=== PATIENT | female | born 1955 | race Caucasian/White ===

== ENCOUNTER → 2016-11-22 | Outpatient (CLI) | payer MEDICARE ==
[~2016-11-22] MED LIST: CALCIUM600 MG PO; FISH OIL 1,2001 EACH PO; HYDROXYZINE HCL25 MG PO; MIRALAX17 GM PO; NAPROXEN250 MG PO; NORCO 7.5-3251 EACH PO; VIT C PO
[2016-11-22 09:47] LABS: HEMOGLOBIN 14.3 gm/dl (12.3-15.3); RED BLOOD COUNT 4.51 M/UL (4.00-5.10); WHITE BLOOD COUNT 5.8 K/UL (4.5-11.0)
== END ==
LOC: OPSV2 08:44
PROVIDERS: Obstetrics & Gynecology
DX: Z01.812 Encounter for preprocedural laboratory examination (principal); Z01.810 Encounter for preprocedural cardiovascular examination; N81.6 Rectocele
CPT/HCPCS: 81001; 85025; 93005

== ENCOUNTER 2016-12-01 10:10 | Day surgery (SDC) | payer MEDICARE ==
[~2016-12-01] VITALS: Ht 160 cm; Wt 70.3 kg
[2016-12-01] MEDS ORDERED: VIT C PO (10:52)
[2016-12-01] MEDS ORDERED: FISH OIL 1,2001 EACH PO (10:53)
[2016-12-01] MEDS ORDERED: CALCIUM600 MG PO (10:53)
[2016-12-01] MEDS ORDERED: HYDROXYZINE HCL25 MG PO (10:54)
[2016-12-02 05:41] LABS: HEMOGLOBIN 11.8 gm/dl (12.3-15.3)
[2016-12-02] MEDS ORDERED: MIRALAX17 GM PO (11:44)
[2016-12-02] MEDS ORDERED: NORCO 7.5-3251 EACH PO (11:45)
[2016-12-02] MEDS ORDERED: NAPROXEN250 MG PO (11:45)
== END 2016-12-02 13:29 | disposition home or self-care (01) ==
LOC: OR 10:10 → M/S 15:54 → OR 12-02 13:29
PROVIDERS: Obstetrics & Gynecology
PROC: 0JQC0ZZ Repair Pelvic Region Subcutaneous Tissue and Fascia, Open Approach (ICD-10-PCS; 2016-12-01)
PROC: 0USG0ZZ Reposition Vagina, Open Approach (ICD-10-PCS; principal; 2016-12-01 12:45)
DX: N81.6 Rectocele (principal); N81.83 Incompetence or weakening of rectovaginal tissue; Z86.19 Personal history of other infectious and parasitic diseases; Z79.82 Long term (current) use of aspirin; Z79.899 Other long term (current) drug therapy; Z90.710 Acquired absence of both cervix and uterus; Z87.440 Personal history of urinary (tract) infections; Z98.51 Tubal ligation status
CPT/HCPCS: 36415; 85014; 85018; C1769; J0690; J1885; J2250; J2405; J2795; J7120

== ENCOUNTER → 2020-10-10 | Outpatient (CLI) | payer OTHER ==
[~2020-10-10] MED LIST changes: +DOK100 MG PO; +IBUPROFEN600 MG PO; +LIDOCAINE-PRILO30 GM TP; +PERCOCET 5-3251 EACH PO
[2020-10-10 09:58] LABS: HEMOGLOBIN 13.7 gm/dl (12.3-15.3); RED BLOOD COUNT 4.27 M/UL (4.00-5.10); WHITE BLOOD COUNT 7.4 K/UL (4.5-11.0)
== END ==
LOC: OPSV2 08:56
PROVIDERS: Obstetrics & Gynecology
DX: Z01.818 Encounter for other preprocedural examination (principal); N75.0 Cyst of Bartholin's gland
CPT/HCPCS: 36415; 71046; 85025; 93005

== ENCOUNTER → 2020-10-14 | Day surgery (SDC) | payer OTHER | END | disposition home or self-care (01) | LOC: OR 07:28 | PROVIDERS: Obstetrics & Gynecology | PROC: 0UBLXZZ Excision of Vestibular Gland, External Approach (ICD-10-PCS; principal; 2020-10-14 09:00) | DX: N75.0 Cyst of Bartholin's gland (principal); Z79.899 Other long term (current) drug therapy; Z20.822 Contact with and (suspected) exposure to COVID-19 | CPT/HCPCS: 81001; J0690; J1100; J1885; J2001; J2405; J2704; J3010; J7030; J7120 ==